=== PATIENT | female | born 1945 | race Caucasian/White ===

== ENCOUNTER → 2017-02-04 | Outpatient (CLI) | payer MEDICARE, OTHER ==
[~2017-02-04] MED LIST: ALLERCLEAR PO; ASCO10007 PO; ASPI-496 PO; CEPH-368 PO; CHLORPHENIRAMINE PO; CLOP75TA22 PO; FEXO180T5 PO; FLUT16SP2 NS; FLUT50DI INH; FURO-92 PO; GABA300C10 PO; GABA600T2 PO; HYDR-3307 PO; HYDR12.58 PO; IBUP200T5 PO; MAGNESIUM PO; METH500T97 PO; METO25TA35 PO; METO50TA82 PO; NIAC500C3 PO; OLOP5DRO EACHEYE; OMEG500C PO; OXYC5CAP4 PO; POTASSIUM PO; PREG100C PO; QUINAPRIL PO; REGADENOSON 0.4 MG/5 ML SYRINGE ONE; SIMV20TA3 PO; SIMV40TA3 PO; SITA1TBM4 PO; TRAM50TA2 PO; [UNRECOGNIZED DRUG - CODE] PO; [UNRECOGNIZED DRUG - CODE] PO; [UNRECOGNIZED DRUG - OTHER] PO; [UNRECOGNIZED DRUG - OTHER] PO
== END | disposition home or self-care (01) ==
LOC: CFH 06:54
PROVIDERS: ATTEND Internal Medicine Cardiovascular Disease
DX: I25.10 Atherosclerotic heart disease of native coronary artery without angina pectoris (principal); Q21.9 Congenital malformation of cardiac septum, unspecified
CPT/HCPCS: 78452; 93017; A9502; J2785

== ENCOUNTER → 2017-09-05 | Outpatient (CLI) | payer MEDICARE, OTHER ==
[~2017-09-05] MED LIST changes: +ASCO100019 PO; -ASCO10007 PO; -CLOP75TA22 PO; +CLOP75TA52 PO; +FEXO180T15 PO; -FEXO180T5 PO; +IBUP-1484 PO; -IBUP200T5 PO; +OMNIPAQUE 350 MG/ML, 100ML BOTTLE ONE; +OXYC5CAP2 PO; -OXYC5CAP4 PO; -REGADENOSON 0.4 MG/5 ML SYRINGE ONE
== END | disposition home or self-care (01) ==
LOC: CFH 11:02
PROVIDERS: ATTEND Internal Medicine Cardiovascular Disease
DX: I71.4 Abdominal aortic aneurysm, without rupture (principal)
CPT/HCPCS: 74174; 82565; Q9967

== ENCOUNTER → 2018-08-31 | Outpatient (CLI) | payer MEDICARE, OTHER ==
[~2018-08-31] MED LIST changes: -GABA600T2 PO; +GABA600T7 PO; -HYDR12.58 PO; +HYDROCHLOROTH12.5 MG PO; -OMNIPAQUE 350 MG/ML, 100ML BOTTLE ONE; +REGADENOSON 0.4 MG/5 ML SYRINGE ONE
== END | disposition home or self-care (01) ==
LOC: CFH 07:33
PROVIDERS: ATTEND Internal Medicine Cardiovascular Disease
DX: I25.10 Atherosclerotic heart disease of native coronary artery without angina pectoris (principal); Z87.891 Personal history of nicotine dependence
CPT/HCPCS: 78452; 93017; A9502; J2785